=== PATIENT | female | born 1980 | race Caucasian/White ===

== ENCOUNTER 2024-12-24 14:03 | Outpatient (CLI) | payer BC | END 2024-12-24 14:04 | disposition home or self-care (01) | LOC: ULT 14:03 | PROVIDERS: ATTEND Nurse Practitioner Family | DX: N92.0 Excessive and frequent menstruation with regular cycle (principal); R93.89 Abnormal findings on diagnostic imaging of other specified body structures | CPT/HCPCS: 76856 ==